=== PATIENT | female | born 1970 | race Caucasian/White ===

== ENCOUNTER → 2020-02-23 14:34 | Outpatient (CLI) | payer OTHER, SELFPAY ==
--- NOTE | 2020-02-23 14:35 | RAD_ITS ---
STUDY: X-RAY - LEFT KNEE REASON FOR EXAM: Pain. TECHNIQUE: 4 view(s) of the knee. COMPARISON: None. FINDINGS: Normal visualized distal femur. Normal visualized proximal tibia and fibula. Normal proximal tibiofibular articulation. There is severe joint space narrowing of the medial femorotibial compartment. Normal lateral femorotibial compartment. There are marginal osteophytes and moderate joint space narrowing of the patellofemoral articulation. The soft tissue structures are unremarkable. RAD/Knee 4 or More Views IMPRESSION: Arthrosis of the medial femorotibial and patellofemoral compartments. Electronically Signed: Grant Dennis MD at 15:30 EDT Tel , Service support ,
== END ==
PROVIDERS: Referring Provider Orthopaedic Surgery; Visit Provider Orthopaedic Surgery
DX: M17.12 Unilateral primary osteoarthritis, left knee (principal)
CPT/HCPCS: 73564

== ENCOUNTER 2020-03-16 12:25 | Outpatient (RCR) | payer OTHER, SELFPAY ==
[2020-02-23 14:43] VITALS: BMI 56.8
== END 2020-03-25 23:59 ==
LOC: NS 12:25
PROVIDERS: Visit Provider Orthopaedic Surgery
DX: Z71.3 Dietary counseling and surveillance (principal); E11.9 Type 2 diabetes mellitus without complications; E66.01 Morbid (severe) obesity due to excess calories; Z68.43 Body mass index [BMI] 50.0-59.9, adult
CPT/HCPCS: G0108

== ENCOUNTER 2020-04-14 14:00 | Outpatient (RCR) | payer OTHER, SELFPAY ==
[2020-02-23 14:43] VITALS: BMI 56.8
== END 2020-04-25 23:59 ==
LOC: DC 14:00
PROVIDERS: Visit Provider Orthopaedic Surgery
DX: Z71.3 Dietary counseling and surveillance (principal); E11.9 Type 2 diabetes mellitus without complications; E66.01 Morbid (severe) obesity due to excess calories; Z68.43 Body mass index [BMI] 50.0-59.9, adult
CPT/HCPCS: 97802; G0108

== ENCOUNTER 2020-05-26 10:24 | Outpatient (RCR) | payer OTHER, SELFPAY ==
[2020-02-23 14:43] VITALS: BMI 56.8
[2020-05-23 08:02] VITALS: BMI 56.8
== END 2020-06-25 23:59 ==
LOC: DC 10:24
PROVIDERS: Visit Provider Orthopaedic Surgery
DX: Z71.3 Dietary counseling and surveillance (principal); E11.9 Type 2 diabetes mellitus without complications; E66.01 Morbid (severe) obesity due to excess calories; Z68.43 Body mass index [BMI] 50.0-59.9, adult
CPT/HCPCS: G0109

== ENCOUNTER 2020-06-30 14:38 | Outpatient (RCR) | payer OTHER, SELFPAY ==
[2020-06-06 08:15] VITALS: BMI 56.8
== END 2020-07-25 23:59 ==
LOC: DC 14:38
PROVIDERS: Visit Provider Orthopaedic Surgery
DX: Z71.3 Dietary counseling and surveillance (principal); E11.9 Type 2 diabetes mellitus without complications; E66.01 Morbid (severe) obesity due to excess calories; Z68.43 Body mass index [BMI] 50.0-59.9, adult
CPT/HCPCS: G0109

== ENCOUNTER 2020-07-28 10:21 | Outpatient (RCR) | payer OTHER, SELFPAY ==
[2020-06-06 08:15] VITALS: BMI 56.8
== END 2020-08-25 23:59 ==
LOC: DC 10:21
PROVIDERS: Visit Provider Orthopaedic Surgery
DX: Z71.3 Dietary counseling and surveillance (principal); E11.9 Type 2 diabetes mellitus without complications; E66.01 Morbid (severe) obesity due to excess calories; Z68.43 Body mass index [BMI] 50.0-59.9, adult
CPT/HCPCS: G0109

== ENCOUNTER 2020-09-08 10:49 | Outpatient (RCR) | payer OTHER, SELFPAY ==
[2020-06-06 08:15] VITALS: BMI 56.8
== END 2020-09-08 23:59 | disposition home or self-care (01) ==
LOC: DC 10:49
PROVIDERS: Visit Provider Orthopaedic Surgery
DX: Z71.3 Dietary counseling and surveillance (principal); E66.01 Morbid (severe) obesity due to excess calories; Z68.43 Body mass index [BMI] 50.0-59.9, adult; E11.9 Type 2 diabetes mellitus without complications
CPT/HCPCS: G0109